=== PATIENT | male | born 1955 ===

== ENCOUNTER 2016-08-09 00:57 | Observation (INO) | payer OTHER ==
--- NOTE | 2016-08-09 01:14 | C.PDOC ---
History Of Present Illness Patient presents to the ER with a complaint of cough and shortness of breath after cleaning his attic. Patient states he inhaled dust and feels mucous build up in his chest. Denies any chest pain, fever, or nausea. Time Seen by Provider: 08/09/16 01:14 Chief Complaint (Nursing): Abdominal Pain History Per: Patient History/Exam Limitations: no limitations Onset/Duration Of Symptoms: Days (1 week) Current Symptoms Are (Timing): Still Present Context: Other (Dust inhalation) Severity: Moderate Pain Scale Rating Of: 4 Radiation Of Pain To:: None Quality Of Discomfort: Other (Mucous in chest, no pain) Associated Symptoms: denies: Fever, Nausea, Other (Chest pain) Exacerbating Factors: None Alleviating Factors: None Last Bowel Movement: Yesterday Recent travel outside of the [place]: No Additional History Per: Patient Past Medical History Reviewed: Historical Data, Nursing Documentation, Vital Signs Vital Signs: Last Vital Signs Temp 97.5 F L 08/09/16 01:08 Pulse 62 08/09/16 01:08 Resp 14 08/09/16 01:08 BP Pulse Ox 95 08/09/16 02:56 - Medical History PMH: Asthma Surgical History: No Surg Hx Family History: States: No Known Family Hx - Social History Hx Alcohol Use: No Hx Substance Use: No - Immunization History Hx Tetanus Toxoid Vaccination: No Hx Influenza Vaccination: No Hx Pneumococcal Vaccination: No Review Of Systems Constitutional: Negative for: Fever ENT: Negative for: Throat Pain Cardiovascular: Negative for: Chest Pain Respiratory: Positive for: Cough, Shortness of Breath Gastrointestinal: Positive for: Abdominal Pain. Negative for: Nausea Genitourinary: Negative for: Dysuria, Frequency Musculoskeletal: Negative for: Back Pain Skin: Negative for: Rash, Lesions, Jaundice, Bruising Neurological: Negative for: Weakness Psych: Negative for: Anxiety Physical Exam - Physical Exam Appears: Well, Non-toxic Skin: Warm, Dry Head: Atraumatic Eye(s): bilateral: Normal Inspection, PERRL, EOMI Oral Mucosa: Moist Chest: Symmetrical, No Tenderness Cardiovascular: Rhythm Regular, No Murmur Respiratory: No Rales, Rhonchi (Scattered), No Wheezing Gastrointestinal/Abdominal: Soft, No Tenderness Back: Normal Inspection Extremity: Normal ROM Extremity: Bilateral: Atraumatic, Normal Color And Temperature, Normal ROM Neurological/Psych: Oriented x3, Normal Speech, Normal Cognition Gait: Steady ED Course And Treatment - Laboratory Results Result Diagrams: 08/09/16 01:32 08/09/16 01:32 ECG: Interpreted By Me, Viewed By Me ECG Rhythm: Sinus Rhythm (64), R BBB, Nonspecific Changes (lahb, ) O2 Sat by Pulse Oximetry: 95 (Room air) Pulse Ox Interpretation: Normal - Radiology CXR: Interpreted by Me, Viewed By Me CXR Interpretation: Yes: Other (mild vascular congestion). No: Infiltrates, Fracture, Pnemothorax Progress Note: Blood work, EKG, and CXR ordered. Nebulizer treatment, medrol IVP , ecotrin PO, and carafate PO administered. Disposition Discussed With Dr.: Rick Reese Comment: accepted the pt on his service and took over the care at 5:45 AM Doctor Will See Patient In The: Hospital Counseled Patient/Family Regarding: Studies Performed, Diagnosis, Need For Followup - Disposition Disposition: HOSPITALIZED Disposition Time: 01:14 Condition: FAIR - POA Present On Arrival: Poor Glycemic Control - Clinical Impression Clinical Impression: Abdominal pain, Hyperkalemia, Hypocalcemia, Hyperbilirubinemia - Scribe Statement The provider has reviewed the documentation as recorded by the Scribe Harpreet Kennedy All medical record entries made by the Scribe were at my direction and personally dictated by me. I have reviewed the chart and agree that the record accurately reflects my personal performance of the history, physical exam, medical decision making, and the department course for this patient. I have also personally directed, reviewed, and agree with the discharge instructions and disposition. Decision To Admit - Pt Status Changed To: Hospital Disposition Of: Inpatient - Admit Certification Admit to Inpatient:: After my assessment, the patient will require hospitalization for at least two midnights. This is because of the severity of symptoms shown, intensity of services needed, and/or the medical risk in this patient being treated as an outpatient. - InPatient: Physician Admission Certification:: After my assessment, the patient will require hospitalization for at least two midnights. This is because of the severity of symptoms shown, intensity of services needed, and/or the medical risk in this patient being treated as an outpatient. - . Bed Request Type: Telemetry Admitting Physician: Rick Reese Patient Diagnosis: Abdominal pain, Hyperkalemia, Hypocalcemia, Hyperbilirubinemia
[2016-08-09] MEDS ORDERED: Sucralfate 1 gm/10 ml Oral Susp UD PO STA (01:16)
[2016-08-09] MEDS ORDERED: Aspirin 325 mg EC Tablets PO STA (01:16)
[2016-08-09] MEDS: Albuterol-Ipratrop 3 mg / 0.5 (3 ml) UD IH SCH ×3 (01:30→01:51)
[2016-08-09] MEDS ORDERED: Albuterol-Ipratrop 3 mg / 0.5 (3 ml) UD ONE ×3 (01:31)
[2016-08-09 01:36] LABS: BASO % 0.7 % (0.0-2.0); EOS # 0.1 K/uL (0.0-0.7); EOS % 2.9 % (0.0-4.0); LYMPH # 1.7 K/uL (1.0-4.3); LYMPH % 46.8 % (20.0-40.0); MEAN CELL VOLUME 88.6 fL (80.0-94.0); MEAN CORPUSCULAR HEMOGLOBIN 29.6 pg (27.0-31.0); MEAN CORPUSCULAR HGB CONC 33.4 g/dL (33.0-37.0); MEAN PLATELET VOLUME 8.9 fL (7.2-11.7); MONO # 0.4 K/uL (0.0-0.8); MONO % 11.5 % (0.0-10.0); NRBC % 0.1 % (0.0-2.0); RED CELL DISTRIBUTION WIDTH 13.7 % (11.5-14.5); WHITE BLOOD COUNT 3.6 K/uL (4.8-10.8)
[2016-08-09] MEDS ORDERED: Aspirin 325 mg EC Tablets PO ONE (01:52)
[2016-08-09 01:53] LABS: CHLORIDE 102 mmol/L (98-107); POTASSIUM 5.8 mmol/L (3.6-5.2); SODIUM 134 mmol/L (132-148)
[2016-08-09 01:55] LABS: GFR AFRICAN-AMERICAN > 60
[2016-08-09 01:56] LABS: ALB/GLOB RATIO 1.2 (1.0-2.1); ALKALINE PHOSPHATASE 52 U/L (38-126); ALT/SGPT 32 U/L (21-72); AST/SGOT 67 U/L (17-59); BILIRUBIN,TOTAL 2.2 mg/dL (0.2-1.3); BLOOD UREA NITROGEN 20 mg/dL (9-20); CALCIUM 7.2 mg/dl (8.6-10.4); CARBON DIOXIDE 23 mmol/L (22-30); GLUCOSE,RANDOM 140 mg/dL (75-110); TOTAL PROTEIN 7.4 g/dL (6.3-8.3)
[2016-08-09] MEDS ORDERED: Sodium Chloride 0.9% 1,000 ML IV ONE (02:30)
[2016-08-09] MEDS ORDERED: Sod Polystyrene Sulf 15 gm/60 ml Oral Susp PO ONE (02:30)
[2016-08-09] MEDS ORDERED: Sodium Chloride 0.9% 1,000 ML ONE (02:42)
[2016-08-09] MEDS ORDERED: Sod Polystyrene Sulf 15 gm/60 ml Oral Susp ONE (02:42)
[2016-08-09] MEDS ORDERED: Iodixanol 320 MG/ML 100 ML BOTTLE IV ONE (03:54)
[2016-08-09] MEDS ORDERED: (Novolin R) Insulin Human Regular 100 units/ml vial IV ONE (05:54)
[2016-08-09] MEDS ORDERED: Dextrose 50% SYRINGE Inj (50 ml) IV STA (05:54)
[2016-08-09] MEDS ORDERED: (Novolin R) Insulin Human Regular 100 units/ml vial ONE (06:09)
[2016-08-09] MEDS ORDERED: Dextrose 25% Inj (10ml) ONE (06:10)
--- NOTE | 2016-08-09 08:32 | RAD ---
HISTORY: SOB COMPARISON: None available TECHNIQUE: Chest, one view. FINDINGS: LUNGS: No focal consolidation. Please note that chest x-ray has limited sensitivity for the detection of pulmonary masses. PLEURA: No significant pleural effusion identified. No definite pneumothorax . CARDIOVASCULAR: Heart size appears top normal. OSSEOUS STRUCTURES: Degenerative changes. VISUALIZED UPPER ABDOMEN: Unremarkable. OTHER FINDINGS: None. IMPRESSION: No focal consolidation, significant pleural effusion, or definite pneumothorax identified.
--- NOTE | 2016-08-09 09:58 | CP.PCM.HP ---
History of Present Illness - History of Present Illness History of Present Illness: 61 years old male patient with past medical history of asthma presented to the emergency department with complaint of shortness of breath and coughing that started after cleaning his attic. Patient also states that he inhaled dust while cleaning. No fever nausea vomiting No chest pain no palpitation Present on Admission - Present on Admission Any Indicators Present on Admission: No Past Patient History - Infectious Disease Hx of Infectious Diseases: None - Past Social History Smoking Status: Never Smoked - PULMONARY Hx Asthma: Yes - PSYCHIATRIC Hx Substance Use: No - SURGICAL HISTORY Hx Surgeries: No Meds Home Medications: Home Medication List Medication Instructions Recorded Confirmed Type Azithromycin [Z-Shady] 250 mg PO DAILY #6 tab 08/11/16 Rx Losartan/Hydrochlorothiazide 1 tab PO DAILY #30 08/11/16 Rx [Losartan-Hctz 100-12.5 mg Tab] Methylprednisolone [Medrol Dose 4 mg PO DAILY #21 mg 08/11/16 Rx Pack (21 tabs)] Pantoprazole [Protonix EC Tab] 40 mg PO DAILY #30 ect 08/11/16 Rx Allergies/Adverse Reactions: Allergies Allergy/AdvReac Type Severity Reaction Status Date / Time No Known Allergies Allergy Unverified 08/09/16 01:13 Physical Exam - Constitutional Appears: Well - Head Exam Head Exam: ATRAUMATIC, NORMAL INSPECTION, NORMOCEPHALIC - Eye Exam Eye Exam: EOMI, Normal appearance, PERRL Pupil Exam: NORMAL ACCOMODATION, PERRL - ENT Exam ENT Exam: Mucous Membranes Moist, Normal Exam - Neck Exam Neck exam: Positive for: Normal Inspection - Respiratory Exam Respiratory Exam: Decreased Breath Sounds - Cardiovascular Exam Cardiovascular Exam: REGULAR RHYTHM, +S1, +S2 - GI/Abdominal Exam GI & Abdominal Exam: Diminished Bowel Sounds, Soft - Rectal Exam Rectal Exam: Deferred Results - Vital Signs Recent Vital Signs: Last Vital Signs Temp 97.5 F L 08/09/16 01:08 Pulse 91 H 08/09/16 07:09 Resp 18 08/09/16 07:09 BP 91/56 L 08/09/16 07:09 Pulse Ox 96 08/09/16 07:09 - Labs Result Diagrams: 08/11/16 12:40 08/11/16 12:40 Assessment & Plan (1) Abdominal pain Status: Acute (2) Hyperbilirubinemia Status: Acute (3) Hyperkalemia Status: Acute (4) Hypocalcemia Status: Acute - Assessment and Plan (Free Text) Plan: Labs and meds reviewed Heart healthy diet IV fluids Solu-Medrol Continue aspirin Moxifloxacin
--- NOTE | 2016-08-09 09:58 | CT ---
PROCEDURE: CT Abdomen and Pelvis with contrast HISTORY: abd pain COMPARISON: None available TECHNIQUE: Contrast dose: 100 mL Visipaque Radiation dose: Total exam DLP = 410.13 mGy-cm. This CT exam was performed using one or more of the following dose reduction techniques: Automated exposure control, adjustment of the mA and/or kV according to patient size, and/or use of iterative reconstruction technique. FINDINGS: LOWER THORAX: Mild bibasilar atelectasis. No visible pleural effusion or pneumothorax. LIVER: Mild hypoattenuation of the liver compatible with hepatic steatosis. GALLBLADDER AND BILE DUCTS: Unremarkable. PANCREAS: Unremarkable. SPLEEN: Unremarkable. ADRENALS: Unremarkable. No mass. KIDNEYS AND URETERS: The kidneys enhance symmetrically. No hydronephrosis. No obstructing calculus. 11 mm left lower pole renal cyst. Additional too small to characterize left renal hypodensities ; statistically cysts. VASCULATURE: No aortic aneurysm. BOWEL: Stomach is nondistended. Lack of oral contrast limits evaluation for bowel pathology. Bowel loops appear within normal limits of caliber without evidence of obstruction. APPENDIX: No secondary signs of acute appendicitis. PERITONEUM: No significant free fluid. No definite free air. LYMPH NODES: No bulky adenopathy identified. BLADDER: Unremarkable. REPRODUCTIVE: The prostate gland measures approximately 4.2 x 4.4 cm. BONES: Degenerative changes. OTHER FINDINGS: None. IMPRESSION: No acute findings. Incidental findings as above. Preliminary impression was provided by virtual radiologic.
[2016-08-09] MEDS: Moxifloxacin IV 400mg/250ml NS 400 MG/250 ML BAG IVPB SCH (18:09)
[2016-08-09] MEDS: MethylPREDNISolone 40 mg Vial IVP SCH (18:10)
[2016-08-09] MEDS: Albuterol-Ipratrop 3 mg / 0.5 (3 ml) UD INH SCH (19:33)
[2016-08-10] MEDS: MethylPREDNISolone 40 mg Vial IVP SCH ×3 (02:08→17:38)
[2016-08-10] MEDS: Albuterol-Ipratrop 3 mg / 0.5 (3 ml) UD INH SCH ×4 (02:47→19:35)
[2016-08-10 07:30] LABS: BASO % 0.1 % (0.0-2.0); HEMATOCRIT 43.1 % (35.0-51.0); LYMPH # 0.7 K/uL (1.0-4.3); MEAN CELL VOLUME 87.6 fL (80.0-94.0); MEAN CORPUSCULAR HEMOGLOBIN 29.9 pg (27.0-31.0); MEAN CORPUSCULAR HGB CONC 34.2 g/dL (33.0-37.0); MEAN PLATELET VOLUME 8.8 fL (7.2-11.7); MONO # 0.3 K/uL (0.0-0.8); MONO % 4.9 % (0.0-10.0); RED CELL DISTRIBUTION WIDTH 13.5 % (11.5-14.5); WHITE BLOOD COUNT 5.6 K/uL (4.8-10.8)
[2016-08-10 07:51] LABS: CHLORIDE 105 mmol/L (98-107); POTASSIUM 4.2 mmol/L (3.6-5.2); SODIUM 139 mmol/L (132-148)
[2016-08-10 07:53] LABS: ALB/GLOB RATIO 1.3 (1.0-2.1); ALKALINE PHOSPHATASE 48 U/L (38-126); ALT/SGPT 41 U/L (21-72); AST/SGOT 27 U/L (17-59); BILIRUBIN,TOTAL 1.1 mg/dL (0.2-1.3); BLOOD UREA NITROGEN 16 mg/dL (9-20); CARBON DIOXIDE 24 mmol/L (22-30); GFR AFRICAN-AMERICAN > 60; TOTAL PROTEIN 6.4 g/dL (6.3-8.3)
[2016-08-10 07:54] LABS: CALCIUM 7.4 mg/dl (8.6-10.4); GLUCOSE,RANDOM 156 mg/dL (75-110)
[2016-08-10] MEDS ORDERED: Metoprolol Succinate 25 mg XL Tab PO SCH (10:00)
[2016-08-10] MEDS: Pantoprazole 40 mg EC Tab PO SCH (10:43)
[2016-08-10] MEDS: Enoxaparin 40 mg Syringe SC SCH (10:46)
[2016-08-10] MEDS: Moxifloxacin IV 400mg/250ml NS 400 MG/250 ML BAG IVPB SCH (17:38)
--- NOTE | 2016-08-10 19:29 | CP.PCM.PN ---
Subjective - Date & Time of Evaluation Date of Evaluation: 08/10/16 Time of Evaluation: 10:40 - Subjective Subjective: Clinically same Objective - Vital Signs/Intake and Output Vital Signs (last 24 hours): Temp Pulse Resp BP Pulse Ox 98.2 F 77 18 135/68 95 08/10/16 15:53 08/10/16 17:07 08/10/16 15:53 08/10/16 15:53 08/10/16 15:53 - Medications Medications: Current Medications Albuterol/Ipratropium (Duoneb 3 Mg/0.5 Mg (3 Ml) Ud) 3 ml INH RQ6 [facility] Last Admin: 08/10/16 13:02 Dose: 3 ml Calcium Carbonate (Oscal) 500 mg PO BID [facility] Last Admin: 08/10/16 17:38 Dose: 500 mg Enoxaparin Sodium (Lovenox) 40 mg SC DAILY [facility] Last Admin: 08/10/16 10:46 Dose: 40 mg Hydrochlorothiazide (Microzide) 12.5 mg PO DAILY [facility] Last Admin: 08/10/16 10:43 Dose: 12.5 mg Moxifloxacin HCl (Avelox Iv 400mg/250ml Ns) 400 mg in 250 mls @ 167 mls/hr IVPB Q24H [facility] Last Admin: 08/10/16 17:38 Dose: 167 mls/hr Methylprednisolone (Solu-Medrol) 40 mg IVP Q8H [facility] Last Admin: 08/10/16 17:38 Dose: 40 mg Pantoprazole Sodium (Protonix Ec Tab) 40 mg PO DAILY [facility] Last Admin: 08/10/16 10:43 Dose: 40 mg - Labs Labs: 08/10/16 07:18 08/10/16 07:18 Assessment and Plan (1) Abdominal pain Status: Acute (2) Hyperbilirubinemia Status: Acute (3) Hyperkalemia Status: Acute (4) Hypocalcemia Status: Acute - Assessment and Plan (Free Text) Plan: Patient feeling better Discharge to home Continue home meds
[2016-08-11 02:17] VITALS: TEMP 98.1
[2016-08-11] MEDS: Albuterol-Ipratrop 3 mg / 0.5 (3 ml) UD INH SCH ×3 (06:05→13:21)
[2016-08-11] MEDS: MethylPREDNISolone 40 mg Vial IVP SCH ×2 (07:49→10:12)
[2016-08-11 08:10] VITALS: BP 128/74; PULSE 62; RESP 18; O2SAT 96
[2016-08-11] MEDS: Enoxaparin 40 mg Syringe SC SCH (10:11)
[2016-08-11] MEDS: Pantoprazole 40 mg EC Tab PO SCH (10:11)
[2016-08-11 13:03] LABS: BASO % 0.1 % (0.0-2.0); HEMATOCRIT 42.9 % (35.0-51.0); LYMPH # 0.7 K/uL (1.0-4.3); LYMPH % 8.1 % (20.0-40.0); MEAN CELL VOLUME 88.2 fL (80.0-94.0); MEAN CORPUSCULAR HEMOGLOBIN 30.1 pg (27.0-31.0); MEAN CORPUSCULAR HGB CONC 34.1 g/dL (33.0-37.0); MEAN PLATELET VOLUME 9.3 fL (7.2-11.7); MONO # 0.4 K/uL (0.0-0.8); PLATELET COUNT 186 K/uL (130-400); RED CELL DISTRIBUTION WIDTH 13.7 % (11.5-14.5); WHITE BLOOD COUNT 8.4 K/uL (4.8-10.8)
[2016-08-11 13:26] LABS: CHLORIDE 102 mmol/L (98-107); SODIUM 138 mmol/L (132-148)
[2016-08-11 13:27] LABS: POTASSIUM 3.7 mmol/L (3.6-5.2)
[2016-08-11 13:29] LABS: ALB/GLOB RATIO 1.3 (1.0-2.1); ALKALINE PHOSPHATASE 51 U/L (38-126); ALT/SGPT 33 U/L (21-72); AST/SGOT 32 U/L (17-59); BLOOD UREA NITROGEN 20 mg/dL (9-20); CARBON DIOXIDE 22 mmol/L (22-30); GFR AFRICAN-AMERICAN > 60; GLUCOSE,RANDOM 227 mg/dL (75-110)
[2016-08-11 13:30] LABS: CALCIUM 7.7 mg/dl (8.6-10.4)
--- NOTE | 2016-08-11 13:43 | CP.PCM.PN ---
Subjective - Date & Time of Evaluation Date of Evaluation: 08/11/16 Time of Evaluation: 09:35 - Subjective Subjective: PGY2 Medicine Note - Dr. Jacey Reese's service: Patient seen and examined at bedside this AM. Patient feeling very well. Patient says he has ventolin inhaler at home that he uses as needed about once a month. Patient says that usually helps him but this time after cleaning his attic, the inhaler did not help. Patient says he feels great now and feels ready to go home. Patient denies fever, chills, chest pain, SOB, wheezing, coughing. Objective - Vital Signs/Intake and Output Vital Signs (last 24 hours): Temp Pulse Resp BP Pulse Ox 98.1 F 62 18 128/74 96 08/11/16 07:05 08/11/16 07:05 08/11/16 07:05 08/11/16 07:05 08/11/16 07:05 - Medications Medications: Current Medications Albuterol/Ipratropium (Duoneb 3 Mg/0.5 Mg (3 Ml) Ud) 3 ml INH RQ6 [facility] Last Admin: 08/11/16 13:21 Dose: 3 ml Calcium Carbonate (Oscal) 500 mg PO BID [facility] Last Admin: 08/11/16 10:12 Dose: 500 mg Enoxaparin Sodium (Lovenox) 40 mg SC DAILY [facility] Last Admin: 08/11/16 10:11 Dose: 40 mg Hydrochlorothiazide (Microzide) 12.5 mg PO DAILY [facility] Last Admin: 08/11/16 10:11 Dose: 12.5 mg Moxifloxacin HCl (Avelox Iv 400mg/250ml Ns) 400 mg in 250 mls @ 167 mls/hr IVPB Q24H [facility] Last Admin: 08/10/16 17:38 Dose: 167 mls/hr Methylprednisolone (Solu-Medrol) 40 mg IVP Q8H [facility] Last Admin: 08/11/16 10:12 Dose: 40 mg Pantoprazole Sodium (Protonix Ec Tab) 40 mg PO DAILY [facility] Last Admin: 08/11/16 10:11 Dose: 40 mg - Labs Labs: 08/11/16 12:40 08/11/16 12:40 - Constitutional Appears: Non-toxic, No Acute Distress - Head Exam Head Exam: NORMAL INSPECTION - Eye Exam Eye Exam: EOMI - ENT Exam ENT Exam: Mucous Membranes Moist - Respiratory Exam Respiratory Exam: Clear to Ausculation Bilateral, NORMAL BREATHING PATTERN. absent: Rales, Rhonchi, Wheezes - Cardiovascular Exam Cardiovascular Exam: REGULAR RHYTHM, +S1, +S2. absent: Gallop, Rubs, Murmur - GI/Abdominal Exam GI & Abdominal Exam: Soft, Normal Bowel Sounds. absent: Tenderness - Extremities Exam Extremities Exam: absent: Pedal Edema - Neurological Exam Neurological Exam: Alert, Oriented x3 - Psychiatric Exam Psychiatric exam: Normal Affect, Normal Mood - Skin Skin Exam: Normal Color, Warm Assessment and Plan - Assessment and Plan (Free Text) Assessment: Asthma exacerbation Duonebs 3ml RQ6 [facility] Solu-Medrol 40mg IVP Q8H Avelox 400mg IVPB daily D/C home with scripts for Z pack, medrol dosepak, protonix HTN HCTZ 12.5mg PO daily in hospital Given script for home med: losartan-hctz 100-12.5mg PO daily #30 Prophlyaxis Protonix 40mg PO daily Lovenox 40mg SC daily
[2016-08-11 14:27] LABS: NEUTROPHIL 86 % (50-75); TOTAL CELLS COUNTED 100
--- NOTE | 2016-08-11 15:50 | CARD ---
APPROVED REPORT EKG Measurement Heart [id number] <Conclusion> Normal sinus rhythm Incomplete Right bundle branch block Left Rosebud deviation Minimal voltage criteria for LVH, may be normal variant Abnormal ECG
== END 2016-08-11 15:15 | disposition home or self-care (01) ==
LOC: EDBD → C.ER 00:57 → MERGE 05:58 → C.9E 05:58 → INTOOBSV 05:58 → C.6T 13:56
PROVIDERS: ADMIT Internal Medicine Nephrology; ATTEND Internal Medicine Nephrology
DX: J45.901 Unspecified asthma with (acute) exacerbation (principal); R06.02 Shortness of breath; E83.51 Hypocalcemia; I10 Essential (primary) hypertension; E87.5 Hyperkalemia; E80.6 Other disorders of bilirubin metabolism; R10.9 Unspecified abdominal pain
CPT/HCPCS: 36415; 71010; 74177; 80053; 84484; 85025; 93005; 94640; 96361; 96374; 99285; G0378; J1650; J2280; J2920; J2930; J7040; Q9967